=== PATIENT | male | born 1970 | race Caucasian/White ===

== ENCOUNTER 2019-07-17 08:25 | Day surgery (SDC) | payer BC ==
[~2019-07-17 08:25] MED LIST: Lactated Ringers 1,000 ML IV SCH
--- NOTE | 2019-07-17 08:50 | PCM.PREANE ---
Preanesthetic Assessment - Anesthesia/Transfusion/Family Hx Anesthesia History: Prior Anesthesia Without Reaction Family History of Anesthesia Reaction: No Transfusion History: No Prior Transfusion(s) - Review of Systems General: No Symptoms Pulmonary: No Symptoms Cardiovascular: No Symptoms Gastrointestinal: No Symptoms Neurological: No Symptoms Other: Reports: None - Physical Assessment Vital Signs: Last Vital Signs Temp 97.7 F 07/17/19 08:42 Pulse 76 07/17/19 08:42 Resp 15 07/17/19 08:42 BP 125/90 07/17/19 08:42 Pulse Ox 98 07/17/19 08:42 Height: 6 ft 3 in Weight: 115.666 kg ASA Class: 2 Mental Status: Alert & Oriented x3 Airway Class: Mallampati = 1 Dentition: Reports: Normal Dentition ROM/Head Extension: Full Lungs: Clear to Auscultation, Normal Respiratory Effort Cardiovascular: Regular Rate, Regular Rhythm - Allergies Allergies/Adverse Reactions: Allergies Allergy/AdvReac Type Severity Reaction Status Date / Time No Known Allergies Allergy Verified 07/11/19 15:54 - Blood Blood Available: No - Anesthesia Plan Pre-Op Medication Ordered: None - Acknowledgements Anesthesia Type Planned: General Anesthesia Pt an Appropriate Candidate for the Planned Anesthesia: Yes Alternatives and Risks of Anesthesia Discussed w Pt/Guardian: Yes Pt/Guardian Understands and Agrees with Anesthesia Plan: Yes Additional Comments: PMH: smoker, thyroid replacement, hld PLAN: tiva PreAnesthesia Questionnaire HEENT History: Reports: Other (See Below) Other HEENT History: wears glasses for long distance vision Cardiovascular History: Reports: High Cholesterol Musculoskeletal History: Reports: Arthritis, Back Pain, Chronic, Fracture Other Musculoskeletal History: hx of fx ribs Neurological History: Reports: Concussion Endocrine/Metabolic History: Reports: Hypothyroidism, Obesity/BMI 30+ Oncologic (Cancer) History: Reports: Basal Cell Carcinoma Other Oncologic History: removed from face - Past Surgical History HEENT Surgical History: Reports: Adenoidectomy, Tonsillectomy Male Surgical History: Reports: Vasectomy Dermatological Surgical History: Reports: Skin Biopsy - SUBSTANCE USE Smoking Status *Q: Current Every Day Smoker Tobacco Use Within Last Twelve Months: Cigarettes Recreational Drug Use History: No - HOME MEDS Home Medications: Home Meds Citalopram Hydrobromide [Celexa] 40 mg PO DAILY 07/11/19 [History] Eszopiclone [Lunesta] 2 mg PO BEDTIME PRN 07/11/19 [History] Gemfibrozil 600 mg PO BID 07/11/19 [History] Levothyroxine Sodium [Euthyrox] 50 mcg PO DAILY 07/11/19 [History] - CURRENT (IN HOUSE) MEDS Current Meds: Current Medications Lactated Ringer's (Ringers, Lactated) 1,000 mls @ 125 mls/hr IV [facility]ED [facility] Last Admin: 07/17/19 08:48 Dose: 125 mls/hr
[2019-07-17] MEDS ORDERED: fentaNYL 100 MCG/2 ML SDV ONE (09:08)
[2019-07-17] MEDS ORDERED: Lidocaine 2% 5 ML SDV ONE (09:08)
[2019-07-17] MEDS ORDERED: Midazolam 1 MG/ML 2 ML SDV ONE (09:08)
[2019-07-17] MEDS ORDERED: Propofol 200 MG/20 ML SDV ONE (09:08)
--- NOTE | 2019-07-17 10:19 | PCM.OPNOTE ---
- General Post-Op/Procedure Note Date of Surgery/Procedure: 07/17/19 Operative Procedure(s): Colonoscopy with cold ascending colon and rectal polypectomies Pre Op Diagnosis: Family history of colon cancer. Desire for colorectal cancer screening. Post-Op Diagnosis: Ascending colon and rectal polyps. Anesthesia Technique: MAC (ASA II) Primary Surgeon: Tate Liao Condition: Good Free Text/Narrative:: DICTATION [id number] CPT CODE [id number]
--- NOTE | 2019-07-17 10:29 | PCM.POSTAN ---
POST ANESTHESIA ASSESSMENT - MENTAL STATUS Mental Status: Alert, Oriented - VITAL SIGNS Vital Signs: Last Vital Signs Temp 97.7 F 07/17/19 08:42 Pulse 73 07/17/19 10:19 Resp 11 L 07/17/19 10:19 BP 131/62 07/17/19 10:19 Pulse Ox 95 07/17/19 10:19 - RESPIRATORY Respiratory Status: Respiratory Rate WNL, Airway Patent, O2 Saturation Stable - CARDIOVASCULAR CV Status: Pulse Rate WNL, Blood Pressure Stable - GASTROINTESTINAL GI Status: No Symptoms - POST OP HYDRATION Hydration Status: Adequate & Stable
[2019-07-17] MEDS ORDERED: Lactated Ringers 1,000 ML IV SCH (10:30)
--- NOTE | 2019-07-17 10:30 | PCM48HPAN ---
Post Anesthesia Note - EVALUATION WITHIN 48HRS OF ANESTHETIC Vital Signs in Normal Range: Yes Patient Participated in Evaluation: Yes Respiratory Function Stable: Yes Airway Patent: Yes Cardiovascular Function Stable: Yes Hydration Status Stable: Yes Pain Control Satisfactory: Yes Nausea and Vomiting Control Satisfactory: Yes Mental Status Recovered: Yes Vital Signs: Last Vital Signs Temp 97.7 F 07/17/19 08:42 Pulse 73 07/17/19 10:19 Resp 11 L 07/17/19 10:19 BP 131/62 07/17/19 10:19 Pulse Ox 95 07/17/19 10:19
--- NOTE | 2019-07-17 13:06 | OR ---
SURGEON: Tate Liao M.D. DATE OF PROCEDURE: 07/17/2019 OPERATION PERFORMED: Colonoscopy with cold ascending colon and cold rectal polypectomy. PRIMARY SURGEON: Tate Liao M.D. ANESTHESIA: MAC. ASA CLASSIFICATION: II. PREOPERATIVE DIAGNOSES: 1. Family history of colon cancer. 2. Desire for colorectal cancer screening. POSTOPERATIVE DIAGNOSIS: Ascending colon and rectal polyps. DESCRIPTION OF PROCEDURE: The patient was taken to the endoscopy room and positioned on the endoscopy table in the left lateral decubitus position. Time-out was called for appropriate identification of the patient and procedure. Monitored anesthesia care was provided. The colonoscope was inserted into the rectum and advanced with minimal difficulty to the cecum where the colonoscope was retroflexed to visualize the ascending colon from below. The colonoscope was then straightened and slowly withdrawn. One small polyp was encountered in the ascending colon and removed with the cold biopsy forceps. The remainder of the ascending colon, hepatic flexure, transverse colon, splenic flexure, descending colon, and sigmoid colon showed no tumors, polyps, diverticula or angiodysplastic changes. The colonoscope was withdrawn to the rectum where a second polyp was encountered and again removed with cold biopsy forceps. The colonoscope was then retroflexed to visualize the anal orifice from above. Again, no tumors or polyps were seen distally and there were no acute hemorrhoidal changes. The colonoscope was then straightened, the rectum aspirated, and the colonoscope removed. The patient tolerated the procedure well and was taken to recovery room in stable condition. SWATHI / REGINA /[id number] JAY
== END 2019-07-17 10:49 | disposition home or self-care (01) ==
LOC: MW.SDS 08:25
PROVIDERS: ATTEND Surgery
DX: Z12.11 Encounter for screening for malignant neoplasm of colon (principal); K63.5 Polyp of colon; K62.1 Rectal polyp; E78.00 Pure hypercholesterolemia, unspecified; F17.210 Nicotine dependence, cigarettes, uncomplicated; M19.90 Unspecified osteoarthritis, unspecified site; E03.9 Hypothyroidism, unspecified; E66.9 Obesity, unspecified; Z68.31 Body mass index [BMI] 31.0-31.9, adult; Z80.0 Family history of malignant neoplasm of digestive organs; Z79.899 Other long term (current) drug therapy
CPT/HCPCS: 45380; J2001; J2250; J2704; J3010; J7120; 88305